=== PATIENT | male | born 1970 | race Caucasian/White ===

== ENCOUNTER 2016-10-28 14:22 | Emergency (ER) | payer OTHER ==
[~2016-10-28] VITALS: Ht 177.8 cm; Wt 97.5 kg
== END 2016-10-28 18:11 | disposition home or self-care (01) ==
LOC: ED 14:22
DX: I10 Essential (primary) hypertension (principal); Z90.49 Acquired absence of other specified parts of digestive tract

== ENCOUNTER → 2020-06-17 | Outpatient (CLI) | payer BC | END | disposition home or self-care (01) | LOC: CARD 11:30 | PROVIDERS: ATTEND Family Medicine | DX: I34.0 Nonrheumatic mitral (valve) insufficiency (principal) ==

== ENCOUNTER → 2022-01-21 | Outpatient (CLI) | payer BC ==
[2022-01-21 09:20] LABS: CREATININE 1.07 mg/dL (0.70-1.30)
== END | disposition home or self-care (01) ==
LOC: LAB 08:38 → CT 08:38
PROVIDERS: ATTEND Family Medicine
DX: Z01.818 Encounter for other preprocedural examination (principal); K40.90 Unilateral inguinal hernia, without obstruction or gangrene, not specified as recurrent; K76.0 Fatty (change of) liver, not elsewhere classified; K57.32 Diverticulitis of large intestine without perforation or abscess without bleeding; N40.0 Benign prostatic hyperplasia without lower urinary tract symptoms

== ENCOUNTER 2024-03-03 13:11 | Emergency (ER) | payer BC ==
[~2024-03-03] VITALS: Ht 177.8 cm; Wt 88.5 kg
[2024-03-03] MEDS ORDERED: AMLODIPINE BESY10 MG PO (13:27)
[2024-03-03] MEDS ORDERED: LISINOPRIL40 MG PO (13:27)
[2024-03-03] MEDS ORDERED: MORPHINE Sulfate 2 MG/ML SYR IV ONE (13:35)
[2024-03-03] MEDS ORDERED: SODIUM CHLORIDE 0.9% 1,000 ML IV ONE (13:35)
[2024-03-03] MEDS ORDERED: Ketorolac Tromethamine 15 MG/ML VIAL IV ONE (13:35)
[2024-03-03] MEDS ORDERED: Ondansetron Hydrochloride 4 MG/2 ML VIAL IV ONE (13:35)
[2024-03-03 13:59] LABS: BASO # 0.1 10*3/uL (0.0-0.1); BASO % 0.8 % (0.0-1.0); EOS # 0.2 10*3/uL (0.0-0.4); EOS % 2.2 % (1.0-4.0); HEMATOCRIT 41.5 % (42.0-52.0); MEAN CELL VOLUME 88.3 fl (80.0-94.0); MEAN CORPUSCULAR HGB 31.7 pg (27.0-31.0); MEAN CORPUSCULAR HGB CONC 35.9 g/dl (33.0-37.0); MEAN PLATELET VOLUME 9.5 fl (9.6-12.3); MONO # 0.8 10*3/uL (0.1-1.0); MONO % 10.2 % (3.0-9.0); NEUT # 5.2 10*3/uL (2.3-7.9); NEUT % 66.4 % (47.0-73.0); PLATELET COUNT AUTOMATED 295 10*3/uL (130-400); RED CELL DISTRI WIDTH 11.7 % (0-14.5); WHITE BLOOD COUNT 7.8 10*3/uL (4.8-10.8)
[2024-03-03 14:18] LABS: BUN 16 mg/dl (9-23); CHLORIDE 105 mmol/L (98-107); POTASSIUM 4.3 mmol/L (3.4-5.1)
[2024-03-03] MEDS ORDERED: PERCOCET 5-3251 EACH PO (14:29)
[2024-03-03] MEDS ORDERED: FLOMAX0.4 MG PO (14:29)
[2024-03-03] MEDS ORDERED: Ondansetron4 MG PO (14:29)
== END 2024-03-03 17:35 | disposition home or self-care (01) ==
LOC: ED 13:11
PROVIDERS: Emergency Medicine
DX: N20.0 Calculus of kidney (principal); I10 Essential (primary) hypertension; R11.0 Nausea; R39.15 Urgency of urination; Z90.49 Acquired absence of other specified parts of digestive tract